=== PATIENT | male | born 1995 | race African-American/Black ===

== ENCOUNTER 2019-12-23 17:24 | Inpatient (IN) | payer OTHER ==
--- NOTE | 2019-12-23 18:51 | HP ---
COWS - Scale Resting Pulse: 0= [place] 80 or Below Sweatin=Flushed/Facial Moisture Restless Observation: 1= Difficult to Sit Still Pupil Size: 1= Pupils >than Normal Bone or Joint Aches: 4=Acute Joint/Muscle Pain Runny Nose/ Eye Tearin= Runny Nose/Eyes GI Upset > 30mins: 2= Nausea/Diarrhea (diarrhea x 2) Tremor Observation: 4= Gross Tremor/Twitching Yawning Observation: 1= 1-2x During Session Anxiety or Irritability: 2=Irritable/Anxious Goose Flesh Skin: 0=Smooth Skin COWS Score: 19 CIWA Score Nausea/Vomitin Muscle Tremors: 4-Moderate,w/Arms Extend Anxiety: 3 Agitation: 2 Paroxysmal Sweats: 2 Orientation: 1-Uncertain about Date Tacttile Disturbances: 0-None Auditory Disturbances: 0-None Visual Disturbances: 0-None Headache: 4-Moderately Severe CIWA-Ar Total Score: 18 - Admission Criteria OASAS Guidelines: Admission for Medically Managed Detox: Requires at least one of the followin. CIWA greater than 12 2. Seizures within the past 24 hours 3. Delirium tremens within the past 24 hours 4. Hallucinations within the past 24 hours 5. Acute intervention needed for co occurring medical disorder 6. Acute intervention needed for co occurring psychiatric disorder 7. Severe withdrawal that cannot be handled at a lower level of care (continued vomiting, continued diarrhea, abnormal vital signs) requiring intravenous medication and/or fluids 8. Admission ROS [facility] Chief Complaint: Heroin and Benzo. withdrawal symptoms Allergies/Adverse Reactions: Allergies Allergy/AdvReac Type Severity Reaction Status Date / Time No Known Allergies Allergy Verified 12/23/19 19:22 History of Present Illness: 24 years old male with 3 years of heroin dependence and 4 years of benzodiazepine dependence is seeking admission to detox. This is his first ad mission to [facility] and his last detoxification was at [facility]. He reports use of 20 bags of heroin and 3mg street Xanax daily. He denies past medical history and reports psych. history of anxiety. He reports prior blackouts and denies overdose. He is unemployed, lives with his parents and denies any legal issues. Confidential Drug Utilization Report Search Terms: maximilian paige, 1995Search Date: 12/23/2019 18:59:37 PM The Drug Utilization Report below displays all of the controlled substance prescriptions, if any, that your patient has filled in the last twelve months. The information displayed on this report is compiled from pharmacy submissions to the Department, and accurately reflects the information as submitted by the pharmacies. Others' Prescriptions Patient Name: Maximilian Salomon Date: 1995 Address: [address] [place] [address] [address] [place], [place] [address]Bgg: Male Rx Written Rx Dispensed Drug Quantity Days Supply Prescriber Name Payment Method Dispenser 01/26/2019 01/26/2019 lorazepam 1 mg tablet 7 2 Sona Marin MD [facility] 01/09/2019 01/09/2019 lorazepam 1 mg tablet 5 1 Sona Marin) [facility] 12/31/2018 01/02/2019 suboxone 8 mg-2 mg sl film 90 30 Yasmin Astorga Medicaid Lirx Patient Name: Maximilian Velasquez Date: 1995 Address: [address] [place], [place] [address]Uug: Male Rx Written Rx Dispensed Drug Quantity Days Supply Prescriber Name Payment Method Dispenser 12/26/2018 12/26/2018 lorazepam 1 mg tablet 7 2 Sona Marin) [facility] Patient Name: Maximilian Salomon Date: 1995 Address: [address] [place] [id number]: Male Rx Written Rx Dispensed Drug Quantity Days Supply Prescriber Name Payment Method Dispenser 12/26/2018 12/26/2018 lorazepam 1 mg tablet 5 1 Sona Marin MD [facility] * - Drugs marked with an asterisk are compound drugs. If the compound drug is made up of more than one controlled substance, then each controlled substance will be a separate row in the table. Exam Limitations: Clinical Condition - Ebola screening Have you traveled outside of the country in the last 21 days: No Have you had contact with anyone from an Ebola affected area: No Do you have a fever: No - Review of Systems Constitutional: Chills, Loss of Appetite, Malaise, Night Sweats, Changes in sleep EENT: reports: No Symptoms Reported, Nose Congestion Respiratory: reports: No Symptoms reported Cardiac: reports: No Symptoms Reported GI: reports: Diarrhea, Nausea, Poor Fluid Intake, Abdominal cramping : reports: No Symptoms Reported Musculoskeletal: reports: Back Pain, Muscle Pain Neuro: reports: Headache, Tremors Endocrine: reports: No Symptoms Reported Hematology: reports: No Symptoms Reported Psychiatric: reports: Mood/Affect Appropiate, Anxious Other Systems: Reviewed and Negative Patient History - Patient Medical History Hx Anemia: No Hx Asthma: No Hx Chronic Obstructive Pulmonary Disease (COPD): No Hx Cancer: No Hx Cardiac Disorders: No Hx Congestive Heart Failure: No Hx Hypertension: No Hx Hypercholesterolemia: No Hx Pacemaker: No HX Cerebrovascular Accident: No Hx Seizures: No Hx Dementia: No Hx Diabetes: No Hx Gastrointestinal Disorders: No Hx Liver Disease: No Hx Genitourinary Disorders: No Hx Sexually Transmitted Disorders: No Hx Renal Disease (ESRD): No Hx Thyroid Disease: No Hx Human Immunodeficiency Virus (HIV): No (Negative 2019) Hx Hepatitis C: No Hx Depression: No Hx Suicide Attempt: No (Denies suicidal ideation at this time) Hx Bipolar Disorder: No Hx Schizophrenia: No Other Medical History: Anxiety - Patient Surgical History Past Surgical History: No - PPD History Previous Implant?: Yes Documented Results: Negative w/o proof Implanted On Prior R Admission?: No PPD to be Administered?: Yes - Reproductive History Patient is a Female of Child Bearing Age (11 -55 yrs old): No (male) - Smoking Cessation Smoking history: Former smoker Have you smoked in the past 12 months: No Hx Chewing Tobacco Use: No Initiated information on smoking cessation: No - Substance & Tx. History Hx Alcohol Use: No Substance Use Type: Cocaine Hx Substance Use Treatment: Yes ( [facility]) - Substances abused Heroin Substance route: Inhalation Frequency: Daily Amount used: 20 bags Age of first use: 21 Date of last use: 12/23/19 Alprazolam (Xanax) Substance route: Oral Frequency: Daily Amount used: 3mg tablet Age of first use: 20 Date of last use: 12/22/19 Admission Physical Exam BHS - Physical General Appearance: Yes: Severe Distress, Tremorous, Sweating, Anxious HEENTM: Yes: Within Normal Limits Respiratory: Yes: Lungs Clear, Normal Breath Sounds, No Respiratory Distress Neck: Yes: Within Normal Limits Breast: Yes: Breast Exam Deferred Cardiology: Yes: Within Normal Limits Abdominal: Yes: Normal Bowel Sounds, Soft Genitourinary: Yes: Within Normal Limits Back: Yes: Normal Inspection Musculoskeletal: Yes: Back pain Extremities: Yes: Tremors Neurological: Yes: Within Normal Limits Integumentary: Yes: Warm Lymphatic: Yes: Within Normal Limits - Diagnostic (1) Opioid dependence with withdrawal Current Visit: Yes Status: Acute (2) Sedative, hypnotic or anxiolytic dependence with withdrawal, uncomplicated Current Visit: Yes Status: Acute (3) Anxiety Current Visit: Yes Status: Acute Cleared for Admission [facility] - Detox or Rehab [facility] Level of Care: Medically Managed Detox Regimen/Protocol: Methadone/Valium Claeared for Rehab Admission: No Inpatient Rehab Admission - Rehab Decision to Admit Inpatient rehab admission?: No
[2019-12-23] MEDS ORDERED: BISMUTH SUBSALICYLATE 524 MG/30 ML UD PO PRN (19:34)
[2019-12-23] MEDS ORDERED: cloNIDine HCL 0.1 MG TABLET PO PRN (19:34)
[2019-12-23] MEDS ORDERED: ACETAMINOPHEN 325 MG TABLET (FP) PO PRN ×2 (19:34)
[2019-12-23] MEDS ORDERED: MAGNESIUM HYDROX 2400MG/30ML ORAL SUSPENSION 30 ML CUP PO PRN (19:34)
[2019-12-23] MEDS ORDERED: MENTHOL/PHENOL 1 EACH UD MM PRN (19:34)
[2019-12-23] MEDS ORDERED: MAGNESIUM CITRATE 300 ML BOTTLE PO PRN (19:34)
[2019-12-23] MEDS ORDERED: IBUPROFEN 400 MG TABLET (FP) PO PRN (19:34)
[2019-12-23] MEDS ORDERED: METHADONE HCL 10 MG TABLET (FOR DETOX USE ONLY) PO ONE (19:34)
[2019-12-23] MEDS ORDERED: MAG HYDROX/AL HYDROX/SIMETH 30 ML UNIT-DOSE CUP PO PRN (19:34)
[2019-12-23] MEDS ORDERED: diazePAM 5 MG TABLET PO PRN (19:34)
[2019-12-23] MEDS ORDERED: hydrOXYzine PAMOATE 25 MG CAPSULE (FP) PO PRN (19:34)
[2019-12-23 19:41] VITALS: BMI 29.1
[2019-12-23] MEDS ORDERED: ONDANSETRON *ODT* 4 MG TABLET SL ONE (20:00)
[2019-12-23] MEDS: THIAMINE HCL 100 MG TABLET (FP) PO SCH (22:24)
[2019-12-23] MEDS: diazePAM 5 MG TABLET PO SCH (22:24)
[2019-12-23] MEDS: MELATONIN 5 MG TABLETS PO SCH (22:24)
[2019-12-24] MEDS: diazePAM 5 MG TABLET PO SCH ×3 (05:56→22:15)
[2019-12-24] MEDS ORDERED: METHADONE HCL 10 MG TABLET (FOR DETOX USE ONLY) ONE (08:51)
[2019-12-24] MEDS ORDERED: METHADONE HCL 5 MG TABLET (FOR DETOX USE ONLY) ONE (08:52)
[2019-12-24] MEDS ORDERED: METHADONE (DETOX) 20 MG, METHADONE (DETOX) 5 MG PO ONE (10:00)
[2019-12-24] MEDS: PRENATAL VITAMINS W/ FOLIC ACID TABLET (FP) PO SCH (10:18)
[2019-12-24] MEDS: METHOCARBAMOL 500 MG TABLET PO PRN (10:19)
[2019-12-24 10:31] LABS: HEMATOCRIT 36.3 % (35.4-49); HEMOGLOBIN 12.1 GM/dL (11.7-16.9); MCH 28.9 pg (25.7-33.7); MCHC 33.3 g/dl (32.0-35.9); MEAN CELL VOLUME 86.8 fl (80-96); PLATELET COUNT 359 K/MM3 (134-434); RBC 4.18 M/mm3 (4.00-5.60); RDW 13.5 % (11.9-15.9); WHITE BLOOD COUNT 3.6 K/mm3 (4.0-10.0)
--- NOTE | 2019-12-24 10:41 | PN ---
S CIWA - CIWA Score Nausea/Vomitin Muscle Tremors: 2 Anxiety: 2 Agitation: 2 Paroxysmal Sweats: 1-Minimal Palms Moist Orientation: 0-Oriented Tacttile Disturbances: 1-Very Mild Itch/Numbness Auditory Disturbances: 0-None Visual Disturbances: 0-None Headache: 2-Mild CIWA-Ar Total Score: 12 BHS COWS - Scale Resting Pulse: 0= [place] 80 or Below Sweatin= No chills or Flushing Restless Observation: 1= Difficult to Sit Still Pupil Size: 1= Pupils >than Normal Bone or Joint Aches: 2= Severe Diffuse Aches Runny Nose/ Eye Tearin= Runny Nose/Eyes GI Upset > 30mins: 2= Nausea/Diarrhea Tremor Observation of Outstretched Hands: 2= Slight Tremor Visible Yawning Observation: 1= 1-2x During Session Anxiety or Irritability: 2=Irritable/Anxious Goose Flesh Skin: 0=Smooth Skin COWS Score: 13 S Progress Note (SOAP) Subjective: alert,irritable,anxious,interrupted sleep,tremor,pain in the body and back,nausea, Objective: 12/24/19 10:42 Vital Signs Temperature 98.0 F 12/24/19 08:29 Pulse Rate 73 12/24/19 08:29 Respiratory Rate 18 12/24/19 08:29 Blood Pressure 104/60 12/24/19 08:29 O2 Sat by Pulse Oximetry (%) 97 12/24/19 06:29 labs pending Assessment: 12/24/19 10:43 withdrawal symptom Plan: continue detox methadone and valium regimen
--- NOTE | 2019-12-24 10:47 | CONSULT ---
[facility] Psychiatric Consult - Data Date of interview: 12/24/19 Admission source: [facility] Identifying data: Patient is a 24 year old single male, without children, unemployed, domiciled, and is financially supported by family. This is patient's first admission to detox at [facility]. Patient admitted to for opioid and benzodiazepine dependence. Substance Abuse History: Smoking Cessation. Smoking history: Former smoker. Have you smoked in the past 12 months: No. Hx Chewing Tobacco Use: No. Initiated information on smoking cessation: No. - Substance & Tx. History. Hx Alcohol Use: No. Substance Use Type: Cocaine. Hx [facility] - Substances abused. Heroin. Substance route: Inhalation. Frequency: Daily. Amount used: 20 bags. Age of first use: 21. Date of last use: 12/23/19. Alprazolam (Xanax). Substance route: Oral. Frequency: Daily. Amount used: 3mg tablet. Age of first use: 20. Date of last use: 12/22/19 Medical History: denies. endorses good health. Psychiatric History: Mr. Armstrong denies history of psychiatric hospitalizations, outpatient care, and suicide attempt. Physical/Sexual Abuse/Trauma History: denies. Mental Status Exam - Mental Status Exam Alert and Oriented to: Time, Place, Person Cognitive Function: Good Patient Appearance: Well Groomed Mood: Withdrawn Affect: Mood Congruent Patient Behavior: Fatigued, Cooperative Speech Pattern: Appropriate Voice Loudness: Mildly Soft/Quiet Thought Process: Goal Oriented Thought Disorder: Not Present Hallucinations: Denies Suicidal Ideation: Denies Homicidal Ideation: Denies Sleep: Fair Appetite: Fair Muscle strength/Tone: Normal Gait/Station: Normal Psychiatric Findings - Problem List ([place] 1, 2,3) (1) Opioid dependence with withdrawal Current Visit: Yes Status: Acute (2) Sedative, hypnotic or anxiolytic dependence with withdrawal, uncomplicated Current Visit: Yes Status: Acute - Initial Treatment Plan Initial Treatment Plan: Psychoeducation provided. Detoxification in progress. Observation.
[2019-12-24 10:50] LABS: ALBUMIN 3.6 g/dl (3.4-5.0); BILIRUBIN,TOTAL 0.3 mg/dL (0.2-1); CALCIUM 8.7 mg/dL (8.5-10.1); CREATININE 1.1 mg/dL (0.55-1.3); POTASSIUM 4.6 mmol/L (3.5-5.1); TOT PROT 6.8 g/dl (6.4-8.2)
--- NOTE | 2019-12-24 14:08 | EKG ---
Test Reason : Blood Pressure : / mmHG Vent. Rate : 063 BPM Atrial Rate : 063 BPM P-R Int : 204 ms QRS Dur : 102 ms QT Int : 424 ms P-R-T Axes : 027 085 049 degrees QTc Int : 433 ms NORMAL SINUS RHYTHM WITH SINUS ARRHYTHMIA MINIMAL VOLTAGE CRITERIA FOR LVH, MAY BE NORMAL VARIANT BORDERLINE ECG NO PREVIOUS ECGS AVAILABLE Confirmed by GERALD CARLOS MD ([id number]) on 12/24/2019 2:08:19 PM Referred By: Confirmed By:GERALD CARLOS MD
[2019-12-24] MEDS: THIAMINE HCL 100 MG TABLET (FP) PO SCH (22:15)
[2019-12-24] MEDS: MELATONIN 5 MG TABLETS PO SCH (22:15)
[2019-12-25] MEDS: diazePAM 5 MG TABLET PO SCH ×2 (05:46→17:22)
[2019-12-25] MEDS: PRENATAL VITAMINS W/ FOLIC ACID TABLET (FP) PO SCH (09:53)
[2019-12-25] MEDS ORDERED: METHADONE HCL 10 MG TABLET (FOR DETOX USE ONLY) PO ONE (10:00)
--- NOTE | 2019-12-25 10:31 | PN ---
[facility] CIWA - CIWA Score Nausea/Vomitin-Mild Nausea/No Vomiting Muscle Tremors: 2 Anxiety: 1-Mildly Anxious Agitation: 0-Normal Activity Paroxysmal Sweats: 1-Minimal Palms Moist Orientation: 0-Oriented Tacttile Disturbances: 0-None Auditory Disturbances: 0-None Visual Disturbances: 0-None Headache: 0-None Present CIWA-Ar Total Score: 5 S COWS - Scale Resting Pulse: 0= [place] 80 or Below Sweatin=Flushed/Facial Moisture Restless Observation: 0= Sits Still Pupil Size: 0= Normal to Room Light Bone or Joint Aches: 1= Mild Discomfort Runny Nose/ Eye Tearin= None GI Upset > 30mins: 0= None Tremor Observation of Outstretched Hands: 0= None Yawning Observation: 0= None Anxiety or Irritability: 1=Feels Anxious/Irritable Goose Flesh Skin: 0=Smooth Skin COWS Score: 4 S Progress Note (SOAP) Subjective: Midly anxious, sweaty Objective: 12/25/19 10:30 PE gnl: WDWN, in bed, in no distress MS: nl Motor: moves well Coord: nl Laboratory Tests 12/24/19 12/24/19 12/24/19 08:30 08:30 08:30 WBC 3.6 L RBC 4.18 Hgb 12.1 Hct 36.3 MCV 86.8 MCH 28.9 MCHC 33.3 RDW 13.5 Plt Count 359 MPV 8.0 Sodium 139 Potassium 4.6 Chloride 108 H Carbon Dioxide 30 Anion Gap 2 L BUN 12.0 Creatinine 1.1 Est GFR (CKD-EPI)AfAm 107.56 Est GFR (CKD-EPI)NonAf 92.81 Random Glucose 84 Calcium 8.7 Total Bilirubin 0.3 AST 33 ALT 43 Alkaline Phosphatase 165 H Total Protein 6.8 Albumin 3.6 Syphilis Serology Non-reactive Home Medication List Medication Instructions Recorded Confirmed Type NK [No Known Home Medication] 12/23/19 12/23/19 History Active Medications Generic Name Dose Route Start Last Admin Trade Name Freq PRN Reason Stop Dose Admin Acetaminophen 650 mg 12/23/19 19:34 Tylenol - PO Q6H PRN PAIN LEVEL 4 - 6 Acetaminophen 650 mg 12/23/19 19:34 Tylenol - PO Q6H PRN FEVER Al Hydroxide/Mg Hydroxide 30 ml 12/23/19 19:34 Mylanta Oral Suspension - PO Q6H PRN DYSPEPSIA Bismuth Subsalicylate 524 mg 12/23/19 19:34 12/25/19 08:59 Pepto-Bismol - PO 524 mg Q1H PRN Administration DIARRHEA Clonidine 0.1 mg 12/23/19 19:34 Catapres - PO 12/25/19 23:59 Q4H PRN Withdrawal Symptoms Diazepam 5 mg 12/25/19 06:00 12/25/19 05:46 Valium - PO 12/25/19 18:01 5 mg Q12H RAMON Administration Diazepam 5 mg 12/26/19 06:00 Valium - PO 12/26/19 06:01 ONCE ONE Diazepam 10 mg 12/23/19 19:34 12/25/19 09:53 Valium - PO 12/26/19 19:33 10 mg Q4H PRN Administration WITHDRAWAL(CONT SUBST) Eucalyptus/Menthol/Phenol/Sorbitol 1 each 12/23/19 19:34 Cepastat Lozenge - MM 12/29/19 19:34 Q4H PRN SORE THROAT Hydroxyzine Pamoate 25 mg 12/23/19 19:34 Vistaril - PO 12/29/19 19:34 Q4HWA PRN ANXIETY Ibuprofen 400 mg 12/23/19 19:34 Motrin - PO Q6H PRN PAIN LEVEL 1 - 3 Magnesium Citrate 300 ml 12/23/19 19:34 Citroma - PO Q48H PRN CONSTIPATION Magnesium Hydroxide 30 ml 12/23/19 19:34 Milk Of Magnesia - PO PRN PRN CONSTIPATION Melatonin 5 mg 12/23/19 22:00 12/24/19 22:15 Melatonin PO Not Given HS RAMON Methadone HCl 5 mg 12/28/19 06:00 Dolophine - PO 12/28/19 06:01 ONCE@0600 ONE Methadone HCl 10 mg 12/27/19 10:00 Dolophine - PO 12/27/19 10:01 ONCE ONE Methadone HCl 10 mg/ Methadone 15 mg 12/26/19 10:00 HCl 5 mg PO 12/26/19 10:01 ONCE ONE Methocarbamol 500 mg 12/23/19 19:34 12/24/19 10:19 Robaxin - PO 12/29/19 19:34 500 mg Q6H PRN Administration MUSCLE SPASMS Multivit/Folic Acid/Iron 1 tab 12/24/19 10:00 12/25/19 09:53 Vitamins (Sjr) - PO 1 tab DAILY RAMON Administration Thiamine HCl 100 mg 12/23/19 22:00 12/24/19 22:15 Vitamin B1 - PO Not Given HS RAMON Vital Signs Temperature 97.5 F L 12/25/19 09:00 Pulse Rate 74 12/25/19 09:00 Respiratory Rate 18 12/25/19 09:00 Blood Pressure 108/68 12/25/19 09:00 O2 Sat by Pulse Oximetry (%) 100 12/25/19 05:41 Assessment: 1. Opioid use disorder 2. Benzodiazepine dependence 3. Anxiety, seen by BETTY Cavazos Plan: 1. Methadone protocol 2. Valium protocol
[2019-12-25] MEDS: MELATONIN 5 MG TABLETS PO SCH (22:13)
[2019-12-25] MEDS: THIAMINE HCL 100 MG TABLET (FP) PO SCH (22:13)
[2019-12-25] MEDS: METHOCARBAMOL 500 MG TABLET PO PRN (22:14)
[2019-12-26] MEDS ORDERED: diazePAM 5 MG TABLET PO ONE (06:00)
[2019-12-26] MEDS ORDERED: METHADONE HCL 10 MG TABLET (FOR DETOX USE ONLY) ONE (09:19)
[2019-12-26] MEDS ORDERED: METHADONE HCL 5 MG TABLET (FOR DETOX USE ONLY) ONE (09:19)
[2019-12-26] MEDS ORDERED: METHADONE (DETOX) 10 MG, METHADONE (DETOX) 5 MG PO ONE (10:00)
[2019-12-26] MEDS: PRENATAL VITAMINS W/ FOLIC ACID TABLET (FP) PO SCH (10:16)
--- NOTE | 2019-12-26 10:37 | PN ---
[facility] CIWA - CIWA Score Nausea/Vomitin-No Nausea/No Vomiting Muscle Tremors: None Anxiety: 2 Agitation: 0-Normal Activity Paroxysmal Sweats: 3 Orientation: 0-Oriented Tacttile Disturbances: 0-None Auditory Disturbances: 0-None Visual Disturbances: 0-None Headache: 0-None Present CIWA-Ar Total Score: 5 BHS COWS - Scale Resting Pulse: 0= [place] 80 or Below Sweatin= No chills or Flushing Restless Observation: 1= Difficult to Sit Still Pupil Size: 0= Normal to Room Light Bone or Joint Aches: 1= Mild Discomfort Runny Nose/ Eye Tearin= None GI Upset > 30mins: 0= None Tremor Observation of Outstretched Hands: 0= None Yawning Observation: 1= 1-2x During Session Anxiety or Irritability: 2=Irritable/Anxious Goose Flesh Skin: 0=Smooth Skin COWS Score: 5 S Progress Note (SOAP) Subjective: c/o mild withdrawal symptoms. Objective: 12/26/19 10:36 Vital Signs 12/26/19 12/26/19 12/26/19 03:19 05:25 09:10 Temperature 97.5 F L 97.4 F L Pulse Rate 68 73 Respiratory 16 16 18 Rate Blood Pressure 99/50 L 107/68 O2 Sat by Pulse 100 Oximetry (%) Laboratory Last Values WBC 3.6 K/mm3 (4.0-10.0) L 12/24/19 08:30 RBC 4.18 M/mm3 (4.00-5.60) 12/24/19 08:30 Hgb 12.1 GM/dL (11.7-16.9) 12/24/19 08:30 Hct 36.3 % (35.4-49) 12/24/19 08:30 MCV 86.8 fl (80-96) 12/24/19 08:30 MCH 28.9 pg (25.7-33.7) 12/24/19 08:30 MCHC 33.3 g/dl (32.0-35.9) 12/24/19 08:30 RDW 13.5 % (11.9-15.9) 12/24/19 08:30 Plt Count 359 K/MM3 (134-434) 12/24/19 08:30 MPV 8.0 fl (7.5-11.1) 12/24/19 08:30 Sodium 139 mmol/L (136-145) 12/24/19 08:30 Potassium 4.6 mmol/L (3.5-5.1) 12/24/19 08:30 Chloride 108 mmol/L (98-107) H 12/24/19 08:30 Carbon Dioxide 30 mmol/L (21-32) 12/24/19 08:30 Anion Gap 2 MMOL/L (8-16) L 12/24/19 08:30 BUN 12.0 mg/dL (7-18) 12/24/19 08:30 Creatinine 1.1 mg/dL (0.55-1.3) 12/24/19 08:30 Est GFR (CKD-EPI)AfAm 107.56 12/24/19 08:30 Est GFR (CKD-EPI)NonAf 92.81 12/24/19 08:30 Random Glucose 84 mg/dL (74-106) 12/24/19 08:30 Calcium 8.7 mg/dL (8.5-10.1) 12/24/19 08:30 Total Bilirubin 0.3 mg/dL (0.2-1) 12/24/19 08:30 AST 33 U/L (15-37) 12/24/19 08:30 ALT 43 U/L (13-61) 12/24/19 08:30 Alkaline Phosphatase 165 U/L (45-117) H 12/24/19 08:30 Total Protein 6.8 g/dl (6.4-8.2) 12/24/19 08:30 Albumin 3.6 g/dl (3.4-5.0) 12/24/19 08:30 Syphilis Serology Non-reactive (NONREACTIVE) 12/24/19 08:30 COVID-19 ([place]) Not detected (Not Detected) 12/23/19 20:00 Labs noted. Assessment: 12/26/19 10:36 AOX3, in no acute respiratory distress. Full ROM, ambulating in the unit. Mild Withdrawal symptoms. Plan: continue detox.
[2019-12-26] MEDS: THIAMINE HCL 100 MG TABLET (FP) PO SCH (22:22)
[2019-12-26] MEDS: MELATONIN 5 MG TABLETS PO SCH (22:22)
--- NOTE | 2019-12-27 09:45 | PN ---
[facility] CIWA - CIWA Score Nausea/Vomitin-No Nausea/No Vomiting Muscle Tremors: 1-None Visible, but [place] Anxiety: 1-Mildly Anxious Agitation: 0-Normal Activity Paroxysmal Sweats: No Perspiration Orientation: 0-Oriented Tacttile Disturbances: 0-None Auditory Disturbances: 0-None Visual Disturbances: 1-Very Mild Sensitivity Headache: 0-None Present CIWA-Ar Total Score: 3 S COWS - Scale Resting Pulse: 0= [place] 80 or Below Sweatin= No chills or Flushing Restless Observation: 0= Sits Still Pupil Size: 0= Normal to Room Light Bone or Joint Aches: 1= Mild Discomfort Runny Nose/ Eye Tearin= None GI Upset > 30mins: 0= None Tremor Observation of Outstretched Hands: 1= Tremor [place], Not Seen Yawning Observation: 0= None Anxiety or Irritability: 1=Feels Anxious/Irritable Goose Flesh Skin: 0=Smooth Skin COWS Score: 3 S Progress Note (SOAP) Subjective: 24 years old male admitted on 12/23/19 for benzo and opiate withdrawal sx management treating with valium and methadone detox regiments feeling better today less tremor mild anxiety encourage to burr picker narcan from pharmacy upon discharge from detox discussing aftercare with staff mr paige prefers [facility] for benzo and opiate recovery Objective: 12/27/19 09:43 Vital Signs - 24 hr 12/26/19 12/26/19 12/26/19 12:40 16:30 20:47 Temperature 97.7 F 97.7 F 96.9 F L Pulse Rate 59 L 61 72 Respiratory 18 18 18 Rate Blood Pressure 108/63 100/59 L 110/69 O2 Sat by Pulse 100 98 Oximetry (%) 12/27/19 12/27/19 12/27/19 00:30 03:26 05:18 Temperature 97.7 F Pulse Rate 87 Respiratory 18 18 18 Rate Blood Pressure 119/72 O2 Sat by Pulse 97 Oximetry (%) 12/27/19 08:48 Temperature 97.7 F Pulse Rate 79 Respiratory 18 Rate Blood Pressure 118/70 O2 Sat by Pulse Oximetry (%) Laboratory Tests 12/23/19 12/24/19 12/24/19 20:00 08:30 08:30 WBC 3.6 L RBC 4.18 Hgb 12.1 Hct 36.3 MCV 86.8 MCH 28.9 MCHC 33.3 RDW 13.5 Plt Count 359 MPV 8.0 Sodium Potassium Chloride Carbon Dioxide Anion Gap BUN Creatinine Est GFR (CKD-EPI)AfAm Est GFR (CKD-EPI)NonAf Random Glucose Calcium Total Bilirubin AST ALT Alkaline Phosphatase Total Protein Albumin Syphilis Serology Non-reactive COVID-19 ([place]) Not detected 12/24/19 08:30 WBC RBC Hgb Hct MCV MCH MCHC RDW Plt Count MPV Sodium 139 Potassium 4.6 Chloride 108 H Carbon Dioxide 30 Anion Gap 2 L BUN 12.0 Creatinine 1.1 Est GFR (CKD-EPI)AfAm 107.56 Est GFR (CKD-EPI)NonAf 92.81 Random Glucose 84 Calcium 8.7 Total Bilirubin 0.3 AST 33 ALT 43 Alkaline Phosphatase 165 H Total Protein 6.8 Albumin 3.6 Syphilis Serology COVID-19 ([place]) lab noted Assessment: 12/27/19 09:44 benzo and opiate withdrawal Plan: valium and methadone regiments
[2019-12-27] MEDS: PRENATAL VITAMINS W/ FOLIC ACID TABLET (FP) PO SCH (09:53)
[2019-12-27] MEDS ORDERED: METHADONE HCL 10 MG TABLET (FOR DETOX USE ONLY) PO ONE (10:00)
[2019-12-27] MEDS: THIAMINE HCL 100 MG TABLET (FP) PO SCH (22:41)
[2019-12-27] MEDS: MELATONIN 5 MG TABLETS PO SCH (22:41)
[2019-12-28] MEDS ORDERED: METHADONE HCL 5 MG TABLET (FOR DETOX USE ONLY) PO ONE (06:00)
[2019-12-28 09:05] VITALS: BP 118/68; PULSE 75; TEMP 98
[2019-12-28] MEDS: PRENATAL VITAMINS W/ FOLIC ACID TABLET (FP) PO SCH (09:14)
--- NOTE | 2019-12-28 09:58 | DS ---
[facility] Detox Discharge Summary Admission Date: 12/23/19 Discharge Date: 12/28/19 - History Present History: Opioid Dependence, Sedative Dependence Additional Comments: 24 years old male admitted on 12/23/19 for benzo and opiate withdrawal sx management treated with valium and methadone detox regiments seen by psychiatrist no medical intervention mr paige has completed the valium and methadone regiments and is tolerated well alert oriented x 3 speech clearly coherently respiratory clear lung sounds bilaterally on auscultation abdomen soft no rebound tenderness extremities full range of motion Pertinent Past History: time for discharge 35 minutes - Physical Exam Results Vital Signs: Vital Signs Temperature 98.0 F 12/28/19 08:29 Pulse Rate 75 12/28/19 08:29 Respiratory Rate 18 12/28/19 08:29 Blood Pressure 118/68 12/28/19 08:29 O2 Sat by Pulse Oximetry (%) 99 12/28/19 06:06 Pertinent Admission Physical Exam Findings: benzo and opiate withdrawal Vital Signs - 24 hr 12/27/19 12/27/19 12/27/19 13:14 16:24 20:35 Temperature 97.7 F 97.8 F 97.7 F Pulse Rate 76 65 67 Respiratory 18 18 18 Rate Blood Pressure 126/64 101/65 103/63 O2 Sat by Pulse 100 100 Oximetry (%) 12/28/19 12/28/19 12/28/19 00:20 03:20 06:06 Temperature 97.8 F Pulse Rate 83 Respiratory 18 18 18 Rate Blood Pressure 120/67 O2 Sat by Pulse 99 Oximetry (%) 12/28/19 12/28/19 06:30 08:29 Temperature 98.0 F Pulse Rate 75 Respiratory 18 18 Rate Blood Pressure 118/68 O2 Sat by Pulse Oximetry (%) Laboratory Tests 12/23/19 12/24/19 12/24/19 20:00 08:30 08:30 WBC 3.6 L RBC 4.18 Hgb 12.1 Hct 36.3 MCV 86.8 MCH 28.9 MCHC 33.3 RDW 13.5 Plt Count 359 MPV 8.0 Sodium Potassium Chloride Carbon Dioxide Anion Gap BUN Creatinine Est GFR (CKD-EPI)AfAm Est GFR (CKD-EPI)NonAf Random Glucose Calcium Total Bilirubin AST ALT Alkaline Phosphatase Total Protein Albumin Syphilis Serology Non-reactive COVID-19 ([place]) Not detected 12/24/19 08:30 WBC RBC Hgb Hct MCV MCH MCHC RDW Plt Count MPV Sodium 139 Potassium 4.6 Chloride 108 H Carbon Dioxide 30 Anion Gap 2 L BUN 12.0 Creatinine 1.1 Est GFR (CKD-EPI)AfAm 107.56 Est GFR (CKD-EPI)NonAf 92.81 Random Glucose 84 Calcium 8.7 Total Bilirubin 0.3 AST 33 ALT 43 Alkaline Phosphatase 165 H Total Protein 6.8 Albumin 3.6 Syphilis Serology COVID-19 ([place]) lab noted - Treatment Hospital Course: Detox Protocol Followed, Detoxed Safely, Responded well, Discharged Condition Good, Rehab Referral Accepted Patient has Accepted a Re[facility] Referral [facility] - Medication Discharge Medications: Ambulatory Orders Naloxone HCl [Narcan] 4 mg NS ASDIR PRN #1 spray 12/27/19 - Diagnosis (1) Substance induced mood disorder Status: Suspected (2) Opioid dependence with withdrawal Status: Acute (3) Sedative, hypnotic or anxiolytic dependence with withdrawal, uncomplicated Status: Acute - AMA Did Patient Leave Against Medical Advice: No CIWA Score - CIWA Score Nausea/Vomitin-No Nausea/No Vomiting Muscle Tremors: 1-None Visible, but [place] Anxiety: 0-No Anxiety, at Ease Agitation: 0-Normal Activity Paroxysmal Sweats: No Perspiration Orientation: 0-Oriented Tacttile Disturbances: 0-None Auditory Disturbances: 0-None Visual Disturbances: 0-None Headache: 0-None Present CIWA-Ar Total Score: 1 COWS (PN) - Opiate Withdrawal Resting Pulse: 0= [place] 80 or Below Sweatin= No chills or Flushing Restless Observation: 0= Sits Still Pupil Size: 0= Normal to Room Light Bone or Joint Aches: 0= None Runny Nose/ Eye Tearin= None GI Upset > 30mins: 0= None Tremor Observation of Outstretched Hands: 1= Tremor [place], Not Seen Yawning Observation: 0= None Anxiety or Irritability: 0= None Goose Flesh Skin: 0=Smooth Skin COWS Score: 1
== END 2019-12-28 09:21 | disposition home or self-care (01) | DRG 773 ==
LOC: YASAS 17:24 → Y3N 19:33
PROVIDERS: ADMIT Allergy & Immunology; ATTEND Allergy & Immunology
PROC: HZ2ZZZZ Detoxification Services for Substance Abuse Treatment (ICD-10-PCS; principal; 2019-12-23)
DX: F11.23 Opioid dependence with withdrawal (principal); F13.230 Sedative, hypnotic or anxiolytic dependence with withdrawal, uncomplicated; F17.211 Nicotine dependence, cigarettes, in remission; F19.24 Other psychoactive substance dependence with psychoactive substance-induced mood disorder; F41.9 Anxiety disorder, unspecified; Z56.0 Unemployment, unspecified
CPT/HCPCS: 36415; 80053; 85027; 86780; 93005; 93010; Q0162; U0003

== ENCOUNTER 2022-09-26 17:42 | Inpatient (IN) | payer OTHER ==
[2022-09-26 18:25] VITALS: BMI 28.7
[2022-09-26] MEDS ORDERED: NALOXONE HCL 0.4 MG/ML VIAL IM PRN ×2 (20:18→20:46)
[2022-09-26] MEDS ORDERED: NALOXONE HCL (KLOXXADO) 8 MG SPRAY NS PRN ×2 (20:18→20:46)
[2022-09-26] MEDS ORDERED: ACETAMINOPHEN 325 MG TABLET (FP) PO PRN ×2 (20:18→20:46)
[2022-09-26] MEDS ORDERED: hydrOXYzine PAMOATE 25 MG CAPSULE (FP) PO PRN (20:18)
[2022-09-26] MEDS ORDERED: POLYETHYLENE GLYCOL (HEALTHYLAX) 3350 17 GM PACKET PO PRN ×2 (20:18→20:46)
[2022-09-26] MEDS ORDERED: NICOTINE POLACRILEX 2 MG GUM BC PRN (20:18)
[2022-09-26] MEDS ORDERED: MAG HYDROX/AL HYDROX/SIMETH 30 ML UNIT-DOSE CUP PO PRN ×2 (20:18→20:46)
[2022-09-26] MEDS ORDERED: BENZONATATE 200 MG CAPSULE PO PRN ×2 (20:18→20:46)
[2022-09-26] MEDS ORDERED: IBUPROFEN 400 MG TABLET (FP) PO PRN ×2 (20:18→20:46)
[2022-09-26] MEDS ORDERED: guaiFENesin 600 MG TABLET.ER (FP) PO PRN ×2 (20:18→20:46)
[2022-09-26] MEDS ORDERED: MAGNESIUM HYDROX 2400MG/30ML ORAL SUSPENSION 30 ML CUP PO PRN ×2 (20:18→20:46)
[2022-09-26] MEDS ORDERED: LOPERAMIDE HCL 2 MG CAPSULE PO PRN ×2 (20:18→20:46)
[2022-09-26] MEDS ORDERED: BENZOCAINE/MENTHOL (CHLORASEPTIC ) LOZENGE MM PRN ×2 (20:18→20:46)
[2022-09-26] MEDS ORDERED: IBUPROFEN 600 MG TABLET (FP) PO PRN (20:18)
[2022-09-26] MEDS ORDERED: DICYCLOMINE HCL 10 MG CAPSULE PO PRN (20:46)
[2022-09-26] MEDS ORDERED: ONDANSETRON *ODT* 4 MG TABLET SL PRN (20:46)
[2022-09-26] MEDS ORDERED: cloNIDine HCL 0.1 MG TABLET PO PRN (20:46)
[2022-09-26] MEDS ORDERED: NICOTINE POLACRILEX 2 MG GUM BUC PRN (20:46)
[2022-09-26] MEDS ORDERED: BISMUTH SUBSALICYLATE 524 MG/30 ML PO PRN (20:46)
[2022-09-26] MEDS ORDERED: methaDONE HCL 10 MG TABLET (FOR DETOX USE ONLY) PO ONE (21:00)
[2022-09-26] MEDS ORDERED: THIAMINE HCL 100 MG TABLET (FP) PO SCH (22:00)
[2022-09-26] MEDS ORDERED: MELATONIN 5 MG TABLETS PO SCH (22:00)
[2022-09-26] MEDS: THIAMINE HCL 100 MG TABLET (FP) PO SCH (23:20)
[2022-09-26] MEDS: MELATONIN 5 MG TABLETS PO SCH (23:20)
[2022-09-27] MEDS ORDERED: NICOTINE 21 MG/24 HOURS TOPICAL PATCH TD SCH (10:00)
[2022-09-27] MEDS ORDERED: PRENATAL VITAMINS W/ FOLIC ACID TABLET (FP) PO SCH (10:00)
[2022-09-27 10:29] LABS: MCH 29.3 pg (25.7-33.7); MEAN CELL VOLUME 83.6 fl (80-96); MEAN PLT VOLUME 7.7 fl (7.5-11.1); PLATELET COUNT 325 10^3/uL (134-434); RBC 4.43 M/mm3 (4.00-5.60); WHITE BLOOD COUNT 3.6 K/mm3 (4.0-10.0)
[2022-09-27 10:46] LABS: BLOOD UREA NITROGEN 13.2 mg/dL (7-18); CALCIUM 9.1 mg/dL (8.5-10.1)
[2022-09-27] MEDS: PRENATAL VITAMINS W/ FOLIC ACID TABLET (FP) PO SCH (10:46)
[2022-09-27] MEDS: NICOTINE 21 MG/24 HOURS TOPICAL PATCH TD SCH (10:47)
[2022-09-27 10:48] LABS: ALBUMIN 3.2 g/dl (3.4-5.0)
[2022-09-27 10:51] LABS: TOT PROT 7.2 g/dl (6.4-8.2)
[2022-09-27 10:59] LABS: BILIRUBIN,TOTAL 0.3 mg/dL (0.2-1)
[2022-09-27] MEDS: MELATONIN 5 MG TABLETS PO SCH (23:24)
[2022-09-27] MEDS: THIAMINE HCL 100 MG TABLET (FP) PO SCH (23:25)
[2022-09-28 09:44] VITALS: RESP 18
[2022-09-28] MEDS ORDERED: methaDONE HCL 10 MG TABLET (FOR DETOX USE ONLY) PO ONE (10:00)
[2022-09-28] MEDS: NICOTINE 21 MG/24 HOURS TOPICAL PATCH TD SCH (10:50)
[2022-09-28] MEDS: PRENATAL VITAMINS W/ FOLIC ACID TABLET (FP) PO SCH (10:50)
[2022-09-28] MEDS: METHOCARBAMOL 500 MG TABLET PO PRN (14:10)
[2022-09-28] MEDS: IBUPROFEN 600 MG TABLET (FP) PO PRN (14:10)
[2022-09-28] MEDS: hydrOXYzine PAMOATE 25 MG CAPSULE (FP) PO PRN ×2 (14:10→22:54)
[2022-09-28] MEDS: MELATONIN 5 MG TABLETS PO SCH (22:54)
[2022-09-28] MEDS: THIAMINE HCL 100 MG TABLET (FP) PO SCH (22:54)
[2022-09-29] MEDS: hydrOXYzine PAMOATE 25 MG CAPSULE (FP) PO PRN ×2 (09:34→23:04)
[2022-09-29] MEDS: METHOCARBAMOL 500 MG TABLET PO PRN (09:34)
[2022-09-29] MEDS: IBUPROFEN 600 MG TABLET (FP) PO PRN (09:34)
[2022-09-29] MEDS: PRENATAL VITAMINS W/ FOLIC ACID TABLET (FP) PO SCH (09:35)
[2022-09-29] MEDS: NICOTINE 21 MG/24 HOURS TOPICAL PATCH TD SCH (09:35)
[2022-09-29] MEDS: MELATONIN 5 MG TABLETS PO SCH (23:03)
[2022-09-29] MEDS: THIAMINE HCL 100 MG TABLET (FP) PO SCH (23:03)
[2022-09-30 01:24] LABS: EPI CELLS 6 /uL (0-25.1); HYALINE CASTS 1 /uL (0-3.1); PH,URINE 6.5 (5.0-8.0); URINE APPEARANCE CLEAR; URINE BACTERIA 3 /uL (0-1359); URINE BILIRUBIN NEGATIVE (NEGATIVE); URINE COLOR YELLOW; URINE GLUCOSE (UA) NEGATIVE (NEGATIVE); URINE KETONE NEGATIVE (NEGATIVE); URINE LEUK ESTERASE TRACE (NEGATIVE); URINE NITRITE NEGATIVE (NEGATIVE); URINE PROTEIN NEGATIVE (NEGATIVE); URINE RBC 4 /uL (0-23.9); URINE UROBILINOGEN 0.2 mg/dL (0.2-1.0); URINE WBC 17 /uL (0-25.8)
[2022-09-30] MEDS: hydrOXYzine PAMOATE 25 MG CAPSULE (FP) PO PRN ×2 (09:28→22:41)
[2022-09-30] MEDS: METHOCARBAMOL 500 MG TABLET PO PRN (09:28)
[2022-09-30] MEDS: PRENATAL VITAMINS W/ FOLIC ACID TABLET (FP) PO SCH (09:28)
[2022-09-30] MEDS ORDERED: methaDONE HCL 10 MG TABLET (FOR DETOX USE ONLY) PO ONE (10:00)
[2022-09-30] MEDS: NICOTINE 21 MG/24 HOURS TOPICAL PATCH TD SCH (10:37)
[2022-09-30] MEDS: THIAMINE HCL 100 MG TABLET (FP) PO SCH (22:40)
[2022-09-30] MEDS: MELATONIN 5 MG TABLETS PO SCH (22:40)
[2022-10-01] MEDS: NICOTINE 21 MG/24 HOURS TOPICAL PATCH TD SCH (10:55)
[2022-10-01] MEDS: PRENATAL VITAMINS W/ FOLIC ACID TABLET (FP) PO SCH (10:55)
[2022-10-01 12:52] VITALS: BP 104/80; PULSE 75; TEMP 97.1
== END 2022-10-01 12:50 | disposition home or self-care (01) | DRG 773 ==
LOC: YASAS 17:42 → Y6N 20:48
PROVIDERS: ADMIT Allergy & Immunology; ATTEND Surgery
PROC: HZ2ZZZZ Detoxification Services for Substance Abuse Treatment (ICD-10-PCS; principal; 2022-09-26)
DX: F11.23 Opioid dependence with withdrawal (principal); F14.20 Cocaine dependence, uncomplicated; F17.210 Nicotine dependence, cigarettes, uncomplicated; F41.9 Anxiety disorder, unspecified; U07.1 COVID-19
CPT/HCPCS: 36415; 80053; 81003; 85027; 86780; 87811; 93005; 93010; C9803-CS; U0003; U0005